=== PATIENT | male | born 1970 | race Caucasian/White ===

== ENCOUNTER 2025-03-24 13:44 | Outpatient (AMB) | payer OTHER, SELFPAY ==
--- NOTE | 2025-03-24 13:40 | MHC.PC.OV ---
Vital Signs 03/24/25 13:48 Height 5 ft 9.13 in Weight 187 lb BMI 27.5 BP 108/64 Blood Pressure Location Rt brachial Position Sitting Respiration 15 Pulse 70 Pulse Source Pulse Oximeter Temp 97.3 F Temp Source Temporal Artery Scan Pulse Oximetry (%) 97 Oxygen Delivery Method Room Air Intake Visit Reasons: Establish Care Surgery Tech Required: No Accompanied by: Spouse Allergies No Known Allergies Allergy (Verified 03/24/25 14:46) Medication List - Last Reconciled 03/24/25 by Traci Cabrera PA-C aspirin 81 mg PO DAILY 90 days metoprolol succinate ER 25 mg PO DAILY rosuvastatin (Crestor) 40 mg PO DAILY ticagrelor 90 mg PO BID 90 days Tobacco use date assessed: 03/24/25 Dental Screening Dental Screen Date: 03/24/25 Did you have a dental visit in the last 12 months?: Yes Did you have a dental problem in the last 6 months where you did not have access to dental care?: No Was dental information given to patient?: Patient has dentist HPI Establish Care HPI Details The patient is a 54-year-old male presenting to establish a new primary care provider, for an annual physical examination along with myocardial infarction management. The patient experienced a myocardial infarction in April 2024 of last year, which was initially characterized by symptoms of dyspnea, diaphoresis, and chest discomfort while at work. He was subsequently admitted to the emergency department at [facility] where he received appropriate care. The patient has not been on prescribed medications such as Ticagrelor, which is crucial for post-myocardial infarction management. He has been advised to resume Ticagrelor, aspirin, atorvastatin, and metoprolol to manage his condition and prevent further cardiac events. The patient reports his cholesterol levels were normal when he was at [facility] and they placed an on atorvastatin for cardiac protection. The patient experiences anxiety, particularly characterized by a sensation of heart racing and general unease. This has been noted since the myocardial infarction, and further evaluation is planned. Preventative care measures include a colon cancer screening with a stool test, which the patient has been compliant with. Social History - Employment: Works in a physically demanding job involving heavy lifting. - Exercise: Engaged in dietary changes and exercise post-myocardial infarction. [facility] Medical History Colon cancer screening Overweight (BMI 25.0-29.9) Preventative health care Feeling anxious History of VT (myocardial infarction) Establishing care with new doctor, encounter for Family History Father Hearing problem of both ears Dementia Enlarged prostate Mother Cancer Social History Housing: House Alcohol intake: current Alcohol intake frequency: a few times a month Patient Tobacco Use Status: Never used Tobacco service: No Current occupational status: employed Cognitive needs: No Hearing needs: No Vision needs: Yes (rx glasses) Questionnaire PHQ-9 Over the last 2 weeks, how often have you been bothered by any of the following problems? 1. Little interest or pleasure in doing things: not at all 2. Feeling down, depressed, or hopeless: not at all 3. Trouble falling or staying asleep, or sleeping too much: not at all 4. Feeling tired or having little energy: not at all 5. Poor appetite or overeating: not at all 6. Feeling bad about yourself - or that you are a failure or have let yourself or your family down: not at all 7. Trouble concentrating on things, such as reading the newspaper or watching television: not at all 8. Moving or speaking so slowly that other people could have noticed. Or the opposite - being so fidgety or restless that you have been moving around a lot more than usual: not at all 9. Thoughts that you would be better off or of hurting yourself in some way: not at all Total score: 0 Depression Screening Interpretation: Negative Depression Screening Done: Yes 16159 - PHQ-9 Billing: Yes Source: Developed by Drs. Napoleon Marie, Tracy Abarca, Ajay Waldron and colleagues, with an educational judith from [employer]. Thrive Questionnaire Date Thrive assessed: 03/24/25 I am a: Patient What is your living situation today?: I have a steady place to live Within the past 12 months, did the food you bought not last and you didn't have the money to get more?: Never true Within the past 12 months, did you worry whether your food would run out before you got money to buy more?: Never true Do you have trouble paying for medicines?: No Do you have trouble getting transportation to medical appointments?: No Do you have trouble paying your heating and electricity bill?: No Do you have trouble taking care of your child, family member or friend?: No Do you have trouble with day-to-day activities such as bathing, preparing meals, shopping, managing finances, etc.?: No Are you currently unemployed and looking for a job?: No Are you interested in more education?: No Please select the resources that you would like help with: None Currently or been in a relationship where the following occur: No concerns reported THRIVE Score: 0 AUDIT C Alcohol Use Questionnaire (AUDIT-C) 1. How often do you have a drink containing alcohol?: 2-4 times a month 2. How many drinks containing alcohol do you have on a typical day when you are drinking?: 1 or 2 3. How often do you have six or more drinks on one occasion?: Never Total Score: 2 Score Reviewed/Action Taken: No CARLO-7 AMB Questionnaire CARLO-7 Date CARLO - 7 assessed: 03/24/25 Feeling nervous, anxious, or on edge: 0 = Not at all Not being able to stop or control worryin = Not at all Worrying too much about different things: 0 = Not at all Trouble relaxin = Not at all Being so restless that it is hard to sit still: 0 = Not at all Becoming easily annoyed or irritable: 0 = Not at all Feeling afraid as if something awful might happen: 0 = Not at all Total CARLO-7 score (0-4 normal; 5-9 mild; 10-14 moderate; 15-21 severe): 0 Source: Developed by Drs. Napoleon Marie, Tracy Abarca, Ajay Waldron and colleagues, with an educational judith from [employer]. CARLO-7 Assessment Billing CARLO-7 Assessment Tool: CARLO-7 Assessment 29512 Review of Systems Const Details: - Cardiovascular: Reports palpitations and anxiety. Denies chest pain or dyspnea since the myocardial infarction. - Gastrointestinal: Denies abdominal pain, black or bloody stools. Physical exam (Primary Care) Vital Signs: Last Vital Signs Temp 97.3 F 03/24/25 13:48 Pulse 70 03/24/25 13:48 Resp 15 03/24/25 13:48 BP 108/64 03/24/25 13:48 Pulse Ox 97 03/24/25 13:48 Oxygen Delivery Method Room Air 03/24/25 13:48 Care Plan Goal for BP management: <140/90 at Goal BMI result Body Mass Index 27.5 BMI Assessment/Plan discussion: High BMI High, discussed plan: lifestyle, weight reduction, dietary, physical activity and alcohol moderation Tobacco/Smoking Status: Tobacco use Status Tobacco use date assessed 03/24/25 03/24/25 13:48 Patient Tobacco Use Status Never used Tobacco 03/24/25 13:56 PHQ-9: PHQ-9 Score PHQ-9: Total score 0 03/24/25 13:48 Depression Screening Interpretation: Negative Thrive Assessment: Date of Thrive Assessment Date Thrive assessed 03/24/25 03/24/25 13:48 Currently or been in a relationship where the following occur: No concerns reported Const Other: Appearance: Alert. Oriented X3. No acute distress. Head: Normal external exam. Normocephalic. Atraumatic. Eyes: Pupils are equal, round, and reactive to light. Extraocular movements intact. Conjunctiva and sclera normal. Eyelids normal. Ears: External auditory canal normal. Tympanic membranes normal. Throat: Pharynx normal. Uvula midline. Moist mucous membranes. Neck: Normal inspection. Neck supple. Full range of motion. No adenopathy. Thyroid Normal. No meningeal signs. No neck mass noted. Cardiovascular: Normal heart rate and rhythm. Heart sound normal. No murmurs noted. Pulses normal throughout. Respiratory: No respiratory distress. Painless inspiration. Breath sounds normal. No wheezes/rales/rhonchi noted. Chest nontender. No accessory muscle usage noted or decreased air movement noted. Abdomen: Soft and nontender. Bowel sounds normal in all 4 quadrants. No distention noted. No organomegaly noted. No visible injury noted. Back: No costovertebral angle tenderness. Full range of motion noted. Skin: Skin warm and dry. Normal skin color. Normal skin turgor. No rashes/lesions/lacerations noted. Extremities: No lower extremity edema. Extremities exhibit normal range of motion. Extremities nontender. Neuro: Oriented X 3. No motor deficit. No sensory deficit. Reflexes normal. Coding Level of Care Code New Pt Level 5 (23162) New Pt Prev Care 40-64y(96399) Diagnoses Establishing care with new doctor, encounter for Z76.89 History of VT (myocardial infarction) I25.2 Feeling anxious R45.89 Preventative health care Z00.00 Overweight (BMI 25.0-29.9) E66.3 Colon cancer screening Z12.11 Additional Codes PHQ-9 - 28966 - PHQ-9 Billing: Yes ([id number]) CARLO-7 Assessment Billing - CAROL-7 Assessment Tool: CARLO-7 Assessment 12240 ([id number]) Time Spent (min) 50 Assessment & Plan Assessment & Plan (1) Establishing care with new doctor, encounter for: Code(s): Z76.89 - Persons encountering health services in other specified circumstances Category: Medical (2) History of VT (myocardial infarction): Comment: At [facility] April 2024 status post stent placement Code(s): I25.2 - Old myocardial infarction Category: Medical Plan: The patient will resume Ticagrelor, aspirin, atorvastatin, and metoprolol to manage his myocardial infarction and prevent further cardiac events. A cardiology referral has been made for further evaluation and management. (3) Feeling anxious: Code(s): R45.89 - Other symptoms and signs involving emotional state Category: Medical Plan: Further evaluation of anxiety symptoms is planned, particularly focusing on the sensation of heart racing. Which include EKG, chest x-ray, echocardiogram, stress test. Return in 2 months for follow-up. Patient instructed to go to the ER if he develops any chest pain or any shortness of breath or any other symptoms (4) Preventative health care: Code(s): Z00.00 - Encounter for general adult medical examination without abnormal findings Category: Medical Plan: Will assess patient's CBC for anemia and platelet count and white blood cell count, will assess patient's chemistry to assess his kidney function, potassium, thyroid function, PSA level, lipid panel, magnesium, vitamin B12, vitamin-D for general health assessment as this is a new patient to get a baseline of his health. (5) Overweight (BMI 25.0-29.9): Code(s): E66.3 - Overweight Category: Medical Plan: Patient to improve diet and exercise regimen. Condition is chronic and stable continue to monitor. (6) Colon cancer screening: Comment: Cologuard ordered on 03/24/2025 Code(s): Z12.11 - Encounter for screening for malignant neoplasm of colon Category: Medical Plan: The patient will continue with colon cancer screening using a stool test, with follow-up based on results. Plan Plan Patient was informed and verbally consented to the use of an ambient scribe for clinic note documentation during this visit. 1. Myocardial Infarction The patient will resume Plavix, aspirin, atorvastatin, and metoprolol to manage his myocardial infarction and prevent further cardiac events. A cardiology referral has been made for further evaluation and management. 2. Hyperlipidemia The patient will continue atorvastatin for hyperlipidemia management. Dietary modifications have been advised to improve cholesterol levels. 3. Anxiety Further evaluation of anxiety symptoms is planned, particularly focusing on the sensation of heart racing. 4. Preventative Care: Colon Cancer Screening With Stool Test The patient will continue with colon cancer screening using a stool test, with follow-up based on results. I discussed with the patient the importance of resuming medications such as Plavix, aspirin, atorvastatin, and metoprolol to manage his myocardial infarction and prevent further cardiac events. We also talked about the need for a cardiology referral for further evaluation and management. The patient was informed about the colon cancer screening with a stool test and the importance of follow-up based on results. Orders: Orders Complete Blood Count Auto Diff Today Z00.00 - Encounter for general adult medical examination without abnormal findings PSA,Total (Free>4and<10) Today Z00.00 - Encounter for general adult medical examination without abnormal findings Vitamin B12 and Folate Today Z00.00 - Encounter for general adult medical examination without abnormal findings ECG 3 day holter monitor Today I25.2 - Old myocardial infarction, R45.89 - Other symptoms and signs involving emotional state C Reactive Protein Today Z00.00 - Encounter for general adult medical examination without abnormal findings Comprehensive [place]. Panel Fast Today Z00.00 - Encounter for general adult medical examination without abnormal findings Liver Panel Today Z00.00 - Encounter for general adult medical examination without abnormal findings Hemoglobin A1c Today Z00.00 - Encounter for general adult medical examination without abnormal findings TSH reflex Free T4 Today Z00.00 - Encounter for general adult medical examination without abnormal findings Magnesium Today Z00.00 - Encounter for general adult medical examination without abnormal findings Vitamin D 25-OH Total Today Z00.00 - Encounter for general adult medical examination without abnormal findings Lipid Panel Today Z00.00 - Encounter for general adult medical examination without abnormal findings CA echo transthoracic complete Today I25.2 - Old myocardial infarction, R45.89 - Other symptoms and signs involving emotional state ECG 12 lead EKG Today I25.2 - Old myocardial infarction, R45.89 - Other symptoms and signs involving emotional state NM cardiolite stress test Today I25.2 - Old myocardial infarction, R45.89 - Other symptoms and signs involving emotional state XR chest 2V Today I25.2 - Old myocardial infarction, R45.89 - Other symptoms and signs involving emotional state Referrals Cardiology Referral I25.2 - Old myocardial infarction, Z76.89 - Persons encountering health services in other specified circumstances Cologuard Test Z12.11 - Encounter for screening for malignant neoplasm of colon, Z12.12 - Encounter for screening for malignant neoplasm of rectum Medications: New aspirin 81 mg PO DAILY 90 tabs 3RF 90 days metoprolol succinate ER 25 mg PO DAILY 90 tabs 3RF ticagrelor 90 mg PO BID 180 tabs 3RF 90 days rosuvastatin (Crestor) 40 mg PO DAILY 90 tabs 3RF Patient Instructions: - Resume taking Plavix, aspirin, atorvastatin, and metoprolol as prescribed. - Attend the cardiology referral appointment for further evaluation. - Continue with dietary modifications to manage cholesterol levels. - Complete the colon cancer screening with the stool test as instructed.
[2025-03-24 13:48] VITALS: BP 108/64; PULSE 70; RESP 15; TEMP 36.3; O2SAT 97; BMI 27.5
== END 2025-03-24 14:35 | disposition home or self-care (01) ==
LOC: HO.HMCSH 13:44
PROVIDERS: PCP Internal Medicine; Visit Provider Physician Assistant Medical
DX: Z00.00 Encounter for general adult medical examination without abnormal findings (principal); I25.2 Old myocardial infarction; R45.89 Other symptoms and signs involving emotional state; E66.3 Overweight; Z68.27 Body mass index [BMI] 27.0-27.9, adult; Z76.89 Persons encountering health services in other specified circumstances; Z12.11 Encounter for screening for malignant neoplasm of colon

== ENCOUNTER → 2025-03-24 13:44 | Outpatient (BNVA) | payer OTHER, SELFPAY | PROVIDERS: PCP Internal Medicine; Visit Provider Physician Assistant Medical | DX: Z00.00 Encounter for general adult medical examination without abnormal findings (principal); I25.2 Old myocardial infarction; R45.89 Other symptoms and signs involving emotional state; E66.3 Overweight; E78.5 Hyperlipidemia, unspecified; F41.9 Anxiety disorder, unspecified; Z68.27 Body mass index [BMI] 27.0-27.9, adult; Z76.89 Persons encountering health services in other specified circumstances | CPT/HCPCS: 96127 ==

== ENCOUNTER 2025-04-08 07:47 | Outpatient (REF) | payer OTHER, SELFPAY ==
--- OUTSIDE RECORDS SUMMARY | 2025-04-08 07:50 | XMS_ITS ---
Author Name [facility] Organization Unknown Care Team Organization Name Specialty Phone Email Start Date End Da te [facility] Termed, PROVIDER Primary Care 07/22/202204/14
[2025-04-08 11:36] LABS: MANUAL DIFF FLAG NO
[2025-04-08 11:44] LABS: Hematocrit 37.5 % (42.0-52.0); Hemoglobin 13.1 g/dl (14.0-18.0); Imm Gran Abs Auto 0.02 X10*3/uL (0.00-0.03); Imm Gran Pct Auto 0.4 % (0.0-0.4); Lymphocytes Absolute Auto 1.9 X10*3/uL (1.2-4.9); Mean Corpuscular HGB Conc 34.9 g/dl (31.0-36.0); Mean Corpuscular Hemoglobin 30.6 pg (27.0-33.0); Mean Corpuscular Volume 87.6 fL (80.0-98.0); NRBC Abs Auto 0.000 X10*3/uL (0.0-0.012); NRBC Pct Auto 0.0 /100WBC (0.0-0.2); Platelet Count 277 X10*3/uL (160-400); Red Blood Count 4.28 X10*6/uL (4.60-5.80); White Blood Count 5.2 X10*3/uL (4.8-10.8)
[2025-04-08 11:57] LABS: Hemoglobin A1C 129.9660 umol/L; Total Hemoglobin (HGBA1C) 3489.3431 umol/L
[2025-04-08 12:28] LABS: Alanine Aminotransferase 36 U/L (0-40); Albumin Level 4.2 g/dL (3.5-5.0); Alkaline Phosphatase 58 U/L (39-117); Anion Gap 12 (12-20); Aspartate Amino Transferase 34 U/L (5-37); Blood Urea Nitrogen 11 mg/dL (9-16); Calcium 8.8 mg/dL (8.4-10.2); Carbon Dioxide 24 mmol/L (22-29); Chloride 107 mmol/L (96-108); Cholesterol 164 mg/dL (<200); Estimated Glomerular Filt Rate > 60; HDL Cholesterol 48 mg/dL (>40); Magnesium 2.1 mg/dL (1.6-2.6); Potassium 4.2 mmol/L (3.3-5.1); Sodium 139 mmol/L (135-145); Total Protein 7.1 g/dL (6.5-8.0); Triglycerides 62 mg/dL (<150)
[2025-04-08 12:40] LABS: PSA,Total (Free>4and<10) < 0.10 ng/mL (0.00-4.00)
[2025-04-08 12:49] LABS: Folate 11.9 ng/mL (> or = 4.0); Vitamin B12 239 pg/mL (200-900)
== END 2025-04-08 07:48 | disposition home or self-care (01) ==
LOC: HO.HMGCLDS 07:47
PROVIDERS: PCP Physician Assistant Medical; Visit Provider Physician Assistant Medical
DX: Z00.00 Encounter for general adult medical examination without abnormal findings (principal)
CPT/HCPCS: 36415; 80053; 80061; 80076; 82248; 82306; 82607; 82746; 83036; 83735; 84153; 84443; 85025; 86140

== ENCOUNTER 2025-05-26 14:49 | Outpatient (AMB) | payer OTHER, SELFPAY ==
[2025-05-26 15:07] VITALS: BP 103/55; PULSE 72; RESP 14; TEMP 37; O2SAT 98; BMI 26.9
--- NOTE | 2025-05-26 15:07 | MHC.PC.OV ---
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 He has not followed up with a cup setter lockstitch since the event, despite a referral being made. A stress test was ordered but not completed, and an echocardiogram was denied by insurance. The patient underwent blood work in March, which revealed mild anemia and elevated fasting glucose levels, indicating a prediabetic state. His LDL cholesterol was slightly elevated, and he is currently on Crestor 40 mg and metoprolol. He also received a flu shot and is on aspirin and Tegretor. The patient completed a colon cancer screening with a stool test recently. He denies experiencing chest pain, dyspnea, or leg swelling, but reports occasional dizziness lasting a few seconds. Social History - Diet: Reports high intake of bread and pasta, occasional pizza consumption. [facility] Medical History (Updated 05/26/25 @ 15:37 by Traci Cabrera PA-C) Hyperlipidemia Prediabetes Anemia Colon cancer screening Overweight (BMI 25.0-29.9) Preventative health care Feeling anxious History of MD (myocardial infarction) Establishing care with new doctor, encounter for Family History Father Hearing problem of both ears Dementia Enlarged prostate Mother Cancer Social History Housing: House Alcohol intake: current Alcohol intake frequency: a few times a month Patient Tobacco Use Status: Never used Tobacco service: No Current occupational status: employed Cognitive needs: No Hearing needs: No Vision needs: Yes (rx glasses) Questionnaire PHQ-9 Over the last 2 weeks, how often have you been bothered by any of the following problems? 1. Little interest or pleasure in doing things: not at all 2. Feeling down, depressed, or hopeless: not at all 3. Trouble falling or staying asleep, or sleeping too much: not at all 4. Feeling tired or having little energy: not at all 5. Poor appetite or overeating: not at all 6. Feeling bad about yourself - or that you are a failure or have let yourself or your family down: not at all 7. Trouble concentrating on things, such as reading the newspaper or watching television: not at all 8. Moving or speaking so slowly that other people could have noticed. Or the opposite - being so fidgety or restless that you have been moving around a lot more than usual: not at all 9. Thoughts that you would be better off or of hurting yourself in some way: not at all Total score: 0 Depression Screening Interpretation: Negative Depression Screening Done: Yes 64453 - PHQ-9 Billing: Yes Source: Developed by Drs. Napoleon Marie, Tracy Abarca, Ajay Waldron and colleagues, with an educational judith from [employer]. Thrive Questionnaire Date Thrive assessed: 03/24/25 I am a: Patient What is your living situation today?: I have a steady place to live Within the past 12 months, did the food you bought not last and you didn't have the money to get more?: Never true Within the past 12 months, did you worry whether your food would run out before you got money to buy more?: Never true Do you have trouble paying for medicines?: No Do you have trouble getting transportation to medical appointments?: No Do you have trouble paying your heating and electricity bill?: No Do you have trouble taking care of your child, family member or friend?: No Do you have trouble with day-to-day activities such as bathing, preparing meals, shopping, managing finances, etc.?: No Are you currently unemployed and looking for a job?: No Are you interested in more education?: No Please select the resources that you would like help with: None Currently or been in a relationship where the following occur: No concerns reported THRIVE Score: 0 AUDIT C Alcohol Use Questionnaire (AUDIT-C) 1. How often do you have a drink containing alcohol?: 2-4 times a month 2. How many drinks containing alcohol do you have on a typical day when you are drinking?: 1 or 2 3. How often do you have six or more drinks on one occasion?: Never Total Score: 2 Score Reviewed/Action Taken: No CARLO-7 AMB Questionnaire CARLO-7 Date CARLO - 7 assessed: 03/24/25 Feeling nervous, anxious, or on edge: 0 = Not at all Not being able to stop or control worryin = Not at all Worrying too much about different things: 0 = Not at all Trouble relaxin = Not at all Being so restless that it is hard to sit still: 0 = Not at all Becoming easily annoyed or irritable: 0 = Not at all Feeling afraid as if something awful might happen: 0 = Not at all Total CARLO-7 score (0-4 normal; 5-9 mild; 10-14 moderate; 15-21 severe): 0 Source: Developed by Drs. Napoleon Marie, Tracy Abarca, Ajay Waldron and colleagues, with an educational judith from [employer]. CARLO-7 Assessment Billing CARLO-7 Assessment Tool: CARLO-7 Assessment 93110 Review of Systems Const Details: - Cardiovascular: Denies chest pain, dyspnea, or leg swelling. - Neurological: Reports occasional dizziness lasting a few seconds. All systems reviewed & are unremarkable except as noted in HPI and below Physical exam (Primary Care) Vital Signs: Last Vital Signs Temp 98.6 F 05/26/25 15:07 Pulse 72 05/26/25 15:07 Resp 14 05/26/25 15:07 BP 103/55 L 05/26/25 15:07 Pulse Ox 98 05/26/25 15:07 Oxygen Delivery Method Room Air 05/26/25 15:07 Care Plan Goal for BP management: <140/90 at Goal BMI result Body Mass Index 26.9 BMI Assessment/Plan discussion: High BMI High, discussed plan: lifestyle, weight reduction, dietary, physical activity, alcohol moderation and other Tobacco/Smoking Status: Tobacco use Status Tobacco use date assessed 05/26/25 05/26/25 15:14 Patient Tobacco Use Status Never used Tobacco 05/26/25 15:14 PHQ-9: PHQ-9 Score PHQ-9: Total score 0 05/26/25 15:16 Depression Screening Interpretation: Negative Thrive Assessment: Date of Thrive Assessment Date Thrive assessed 03/24/25 05/26/25 15:14 Currently or been in a relationship where the following occur: No concerns reported Const Other: Appearance: Alert. Oriented X3. No acute distress. Head: Normal external exam. Normocephalic. Atraumatic. Eyes: Pupils are equal, round, and reactive to light. Extraocular movements intact. Conjunctiva and sclera normal. Eyelids normal. Throat: Pharynx normal. Uvula midline. Moist mucous membranes. Neck: Normal inspection. Neck supple. Full range of motion. Cardiovascular: Normal heart rate and rhythm. Heart sound normal. Respiratory: No respiratory distress. Painless inspiration. Back: Full range of motion noted. Skin: Skin warm and dry. Normal skin color. Normal skin turgor. No rashes/lesions/lacerations noted. Extremities: Extremities exhibit normal range of motion. Neuro: Oriented X 3. No motor deficit. No sensory deficit. Reflexes normal. Reports occasional dizziness lasting a couple of seconds. Office Procedures Flu Questionnaire Does the patient have a severe egg allergy?: No Does the patient have severe life threatening allergies?: No Does the patient have a fever or illness today?: No Has the patient ever had Guillain-[place] Syndrome?: No Has the patient ever had any past reaction to a flu shot?: No Immunizations Fluarix [id number] (PF) 45 mcg (15 mcg x 3)/0.5 mL IM syringe Performing Provider: Traci Cabrera PA-C [facility] Documented (not given) by: EVETTE Ryan on 05/26/25 15:17 Reason Not Given: Patient Refused Results Reviewed Results Reviewed: - Labs: Mild anemia, elevated fasting glucose indicating prediabetes, slightly elevated LDL cholesterol. - Tests: Colon cancer screening with stool test completed. Coding Level of Care Code Est Pt Level 4 (65190) Complex EM visit Add On G2211 Diagnoses History of MD (myocardial infarction) I25.2 Anemia D64.9 Prediabetes R73.03 Hyperlipidemia E78.5 Additional Codes CARLO-7 Assessment Billing - CARLO-7 Assessment Tool: CARLO-7 Assessment 94058 ([id number]) PHQ-9 - 85600 - PHQ-9 Billing: Yes ([id number]) Assessment & Plan Assessment & Plan (1) History of MD (myocardial infarction): Comment: At [facility] April 2024 status post stent placement Code(s): I25.2 - Old myocardial infarction Category: Medical Plan: The patient is advised to follow up with a cup setter lockstitch for further evaluation and management of his cardiac health post-myocardial infarction. A stress test and Holter monitor are scheduled to assess cardiac function, although the echocardiogram was denied by insurance. (2) Anemia: Code(s): D64.9 - Anemia, unspecified Category: Medical Plan: The mild anemia detected in the blood work will be monitored, and dietary adjustments may be recommended to address this issue. (3) Prediabetes: Code(s): R73.03 - Prediabetes Category: Medical Plan: The patient is advised to improve dietary habits to manage elevated fasting glucose levels and prevent progression to diabetes. (4) Hyperlipidemia: Code(s): E78.5 - Hyperlipidemia, unspecified Category: Medical Plan: The patient is currently on Crestor 40 mg to manage hyperlipidemia, with a focus on maintaining LDL cholesterol levels within the target range. Plan Plan Patient was informed and verbally consented to the use of an ambient scribe for clinic note documentation during this visit. 1. Myocardial Infarction The patient is advised to follow up with a cup setter lockstitch for further evaluation and management of his cardiac health post-myocardial infarction. A stress test and Holter monitor are scheduled to assess cardiac function, although the echocardiogram was denied by insurance. 2. Anemia The mild anemia detected in the blood work will be monitored, and dietary adjustments may be recommended to address this issue. 3. Prediabetes The patient is advised to improve dietary habits to manage elevated fasting glucose levels and prevent progression to diabetes. 4. Hyperlipidemia The patient is currently on Crestor 40 mg to manage hyperlipidemia, with a focus on maintaining LDL cholesterol levels within the target range. During the visit, I discussed with the patient the importance of following up with a cup setter lockstitch for his cardiac health management post-myocardial infarction. We reviewed his lab results, which indicated mild anemia and prediabetes, and I emphasized dietary modifications to address these issues. I also informed him about the scheduled stress test and Holter monitor, and the denial of the echocardiogram by insurance. Orders: Orders Influenza [id number] Immunization Today Z23 - Encounter for immunization Patient Instructions: - Follow up with a cup setter lockstitch as soon as possible. - Attend scheduled stress test and Holter monitor appointments. - Monitor and improve dietary habits to manage prediabetes and anemia.
== END 2025-05-26 15:28 | disposition home or self-care (01) ==
LOC: HO.HMCSH 14:49
PROVIDERS: PCP Physician Assistant Medical; Visit Provider Physician Assistant Medical
DX: I25.2 Old myocardial infarction (principal); D64.9 Anemia, unspecified; R73.03 Prediabetes; E78.5 Hyperlipidemia, unspecified; Z23 Encounter for immunization

== ENCOUNTER → 2025-05-26 14:49 | Outpatient (BNVA) | payer OTHER, SELFPAY | PROVIDERS: PCP Physician Assistant Medical; Visit Provider Physician Assistant Medical | DX: D64.9 Anemia, unspecified (principal); R73.03 Prediabetes; E78.5 Hyperlipidemia, unspecified; I25.2 Old myocardial infarction; Z79.899 Other long term (current) drug therapy; Z28.21 Immunization not carried out because of patient refusal; Z13.31 Encounter for screening for depression | CPT/HCPCS: 90471; 96127 ==

== ENCOUNTER → 2025-06-01 13:50 | Outpatient (REF) | payer OTHER, SELFPAY ==
--- NOTE | 2025-06-01 13:59 | ECG_ITS ---
Test Reason : R45.89 Blood Pressure : */* mmHG Vent. Rate : 66 BPM Atrial Rate : 66 BPM P-R Int : 170 ms QRS Dur : 106 ms QT Int : 402 ms P-R-T Axes : 51 90 66 degrees QTcB Int : 421 ms Normal sinus rhythm Rightward axis Septal infarct , age undetermined T wave abnormality, consider anterior ischemia Abnormal ECG No previous ECGs available Referred By: Traci Cabrrea Electronically Signed By: TOPHER BOX
--- NOTE | 2025-06-01 13:59 | HM_ITS ---
* Total monitoring time 3 days. * Underlying rhythm is sinus with an average rate of 78/Min. * Rare supraventricular ectopy. * Rare ventricular ectopy. * No significant pauses or high-grade AV blocks. * No patient markers or diary events. MTDD
== END ==
LOC: HO.CARD 13:50
PROVIDERS: PCP Physician Assistant Medical; Visit Provider Physician Assistant Medical
DX: R45.89 Other symptoms and signs involving emotional state (principal); I25.2 Old myocardial infarction
CPT/HCPCS: 93005; 93242

== ENCOUNTER → 2025-06-01 13:59 | Outpatient (BNV) | payer OTHER, SELFPAY | PROVIDERS: PCP Physician Assistant Medical; Visit Provider Internal Medicine | DX: R94.31 Abnormal electrocardiogram [ECG] [EKG] (principal); R45.89 Other symptoms and signs involving emotional state | CPT/HCPCS: 93010 ==

== ENCOUNTER → 2025-06-09 08:48 | Outpatient (REF) | payer OTHER, SELFPAY ==
--- NOTE | ~2025-06-09 | NM_ITS ---
EXERCISE MYOCARDIAL PERFUSION STUDY INDICATION: Coronary artery disease, palpitations TECHNIQUE: The patient was brought in for an exercise perfusion study on 06/09/2025. Patient performed exercise as per Dalton protocol and was injected 30 mCi of sestamibi once target heart rate was achieved. Images were obtained using the SPECT gamma camera interlaced with the gating device. Images were obtained in supine position. Resting perfusion study was performed on 06/15/2025. Patient was administered 30 mCi of sestamibi intravenously at rest. Images were then obtained in supine position. Total DLP 77 mGy-cm. Images were processed with the software and compared side to side in short axis, horizontal long axis and vertical long axis views. FINDINGS: Raw aquisition reviewed. The stress perfusion study showed markedly diminished tracer uptake in the apex and adjacent part of anterior wall. There is no major change with CT attenuation correction. The gated study shows reduced LV systolic function with calculated LVEF of 48%. LV cavity is dilated in size. The gated study shows aspect contractility appeared apex and adjacent part of anterior wall. Resting study shows markedly reduced to absent uptake at the apex and adjacent part of anterior wall. Gating at rest reveals apical akinesis with ejection fraction at 38%. The findings are consistent with mostly fixed apical perfusion defect with some reversibility is adjacent anterior wall. NM/NM cardiolite stress test IMPRESSION: 1. Myocardial perfusion imaging study shows apical infarct, with nicole-infarct ischemia in the adjacent anterior wall. 2. Gated LVEF is 48% during stress and 38% during rest. 3. Transient ischemic dilatation not present. EKG component of the test reported separately. Electronically signed by: Rogers Brand MD 06/16/2025 10:50 AM EDT
--- NOTE | 2025-06-09 08:50 | CA_ITS ---
Acquisition Time: 2025-06-09 09:14:12 Total Exercise Time: 00:09:50 Test Indications: Screening for CAD,Palpitations Medications: ASA METOPROLOL ROSUVASTATIN TICAGRELOR Protocol: BRY Max HR: 157 BPM 94% of Pred: 167 BPM Max BP: 148/78 mmHG Max Work Load: 11.4 METS Exercise stress test with exercise 9 mins 50 secs of Bry Protocol, achieving 92% MPHR, with reports of mild SOB, no chest pain, without any arrythmias, with normotensive response to exercise. Without any EKG changes meeting criteria for ischemia. In recovery, pt's breathing improved to baseline. Nuclear images pending. Test reviewed with Dr. Seaman. Referred By: Traci Cabrera Electronically Signed By: Osmar Vogel
== END ==
LOC: HO.CARD 08:48
PROVIDERS: PCP Physician Assistant Medical; Visit Provider Physician Assistant Medical
DX: I25.10 Atherosclerotic heart disease of native coronary artery without angina pectoris (principal); I25.2 Old myocardial infarction; R45.89 Other symptoms and signs involving emotional state; R00.2 Palpitations; Z79.899 Other long term (current) drug therapy; Z79.02 Long term (current) use of antithrombotics/antiplatelets
CPT/HCPCS: 78452; 93017; A9500

== ENCOUNTER → 2025-06-09 08:50 | Outpatient (BNV) | payer OTHER, SELFPAY | PROVIDERS: PCP Physician Assistant Medical | DX: R06.02 Shortness of breath (principal) | CPT/HCPCS: 78452; 93016; 93018 ==